=== PATIENT | female | born 1940 | race Caucasian/White ===

== ENCOUNTER 2024-08-28 10:37 | Emergency (ER) | payer OTHER ==
[~2024-08-28] VITALS: Ht 170.2 cm; Wt 150.0 kg
[~2024-08-28 10:37] MED LIST: GABA-1250; HYDR2INJ9; LORA-655; MECL100C; NOR10T; ONDA-144; PAROXETINE 20 MG; PREG100C; TRAZ-227; [UNRECOGNIZED DRUG - CODE]
[2024-08-28 11:42] VITALS: PULSE 85; RESP 20; O2SAT 95
--- NOTE | 2024-08-28 11:48 | ED.PDOC ---
Robet. trauma (HPI) HPI Comments 84 y/o F, TWIN presents to the ED for CC of hip pain. Per EMS, patient is s/p ground level fall x1day ago. Patient complains of current left hip pain. Patient denies LOC, head injury, open wounds, lacerations, or abrasions. Patient denies social history. No other associated symptoms, modifiers, or sick contacts at t his time. Chief Complaint: Fall Injury Time Seen by MD: 11:20 Primary Care Provider: UNKNOWN Reviewed notes: Nurses Notes, Desktop Support Associate Notes, Medications, Allergies Allergies: Coded Allergies: NO KNOWN ALLERGIES (Unverified , 05/25/11) Home Meds Reported Medications Gabapentin (Gabapentin) 300 Mg Cap, #300 05/02/16 Ondansetron (Zofran) 4 Mg Tab, #30 05/02/16 Meclofenamate Sodium (Meclofenamate Sodium) 100 Mg Cap, #100 05/02/16 Trazodone Hcl (Trazodone Hcl) 50 Mg Tab 05/25/11 [Paroxetine 20 Mg] No Conflict Check 05/25/11 Hydrocodone-Acetaminophen ([place] 10/325MG) 1 Tab Tb 05/25/11 Pregabalin (Lyrica) 100 Mg Cap 05/25/11 Hydromorphone Hcl (Dilaudid) 2 Mg/Ml Inj 05/25/11 Sulindac (Clinoril) 200 Mg Tab 05/25/11 Lorazepam (Ativan) 0.5 Mg Tab 05/25/11 Information Source: Patient, Emergency Med Personnel Mode of Arrival: EMS Severity: Moderate Timing: Days Duration: Since onset Prehospital treatment: None Location: (L) Hip Location of laceration: None Mechanism: Fall Associated signs and symtoms: None Past Medical History PAST MEDICAL HISTORY: Denies Surgical History: Denies all surgeries WEDGER MACHINE History: No Pertinent WEDGER MACHINE History Family History Family History: Unobtainable Social History Smoker: Non-Smoker Alcohol: Denies ETOH Use Drugs: Denies Drug Use Lives In: Home Constitutional: denies: chills, diaphoresis, fatigue, fever, malaise, sweats, weakness, others EENTM: denies: blurred vision, double vision, ear bleeding, ear discharge, ear drainage, ear pain, ear ringing, eye pain, eye redness, hearing loss, mouth pain, mouth swelling, nasal discharge, nose bleeding, nose congestion, nose pain, photophobia, tearing, throat pain, throat swelling, voice changes, others Respiratory: denies: cough, hemoptysis, orthopnea, SOB at rest, shortness of breath, SOB with excertion, stridor, wheezing, others Cardiovascular: denies: chest pain, dizzy spells, diaphoresis, Dyspnea on exertion, edema, irregular heart beat, left arm pain, lightheadedness, palpi tations, PND, syncope, others Gastrointestinal: denies: abdomen distended, abdominal pain, blood streaked bowels, constipated, diarrhea, dysphagia, difficulty swallowing, hematemesis, melena, nausea, poor appetite, poor fluid intake, rectal bleeding, rectal pain, vomiting, others Genitourinary: denies: abnormal vagina bleeding, burning, dyspareunia, dysuria, flank pain, frequency, hematuria, incontinence, pain, , vagina discharge, urgency, others Neurological: denies: dizziness, fainting, headache, left sided numbness, left sided weakness, numbness, paresthesia, pre-existing deficit, right sided numbness, right sided weakness, seizure, speech problems, tingling, tremors, weakness, others Musculoskeletal: reports: others (left hip ); denies: back pain, gout, joint pain, joint swelling, muscle pain, muscle stiffness, neck pain Integumetry: denies: bruises, change in color, change in hair/nails, dryness, laceration, lesions, lumps, rash, wounds, others Allergic/Immunocompromised: denies: Difficulty Healing, Frequent Infections, Hives, Itching, others Hematologic/Lymphatic: denies: anemia, blood clots, easy bleeding, easy bruising, swollen glands, others Endocrine: denies: excessive hunger, excessive sweating, excessive thirst, excessive urination, flushing, intolerance to cold, intolerance to heat, unexplained weight gain, unexplained weight loss, others Psychiatric: denies: anxiety, bipolar disorder, depression, hopeless, panic disorder, schizophrenia, sleepless, suicidal, others All Other Systems: Reviewed and Negative Physical Exam General Appearance: No Apparent Distress, Normal HEENT: Normal ENT Inspection, Pharynx Normal, TMs Normal Neck: Full Range of Motion, Non-Tender, Normal, Normal Inspection Respiratory: Chest Non-Tender, Lungs Clear, No Accessory Muscle Use, No Respiratory Distress, Normal Breath Sounds Cardiovascular: No Edema, No JVD, No Murmur, No Gallop, Normal Peripheral Pulses, Regular Rate/Rhythm Breast Exam: Deferred Gastrointestinal: No Organomegaly, Non Tender, No Pulsatile Mass, Normal Bowel Sounds, Soft Genitalia: Deferred Pelvic: Other (No pain with axial loading of the pelvis) Rectal: Deferred Extremities: No calf tenderness, Normal capillary refill, Normal inspection, Normal range of motion, Non-tender (Tender over the entirety of bilateral lower extremities), No pedal edema Musculoskeletal : Location: Left Extremity Location: Hip (unable to lift extremity against gravity ) Apperance: Normal Neurologic: Alert, No Motor Deficits, Normal Affect, Normal Mood, No Sensory Deficits Cerebellar Function: Normal Reflexes: Normal Skin: Dry, Normal Color, Warm Lymphatic: No Adenopathy Was a procedure done? Was a procedure done?: No Differential Diagnosis Multiple Trauma: Fractures, Abrasions, Contusion X-Ray, Labs, Meds, VS Vital Signs Date Time Temp Pulse Resp B/P (MAP) Pulse Ox O2 Delivery O2 Flow Rate FiO2 08/28/24 16:19 97.8 63 16 7/76 (53) 98 97.8 08/28/24 14:03 97.8 56 16 168/76 (106) 98 97.8 08/28/24 12:50 61 18 166/77 08/28/24 11:56 57 16 164/96 08/28/24 11:46 97.8 57 16 164/96 (118) 94 97.8 08/28/24 11:46 57 16 94 Room Air 08/28/24 11:42 85 20 95 Room Air* 0 21 08/28/24 11:38 98.1 76 16 157/73 (101) 94 Lab Test 08/28/24 12:51 08/28/24 11:34 08/28/24 11:30 Range/Units Urine Color Yellow Yellow Urine Clarity Clear Clear Urine pH 6.0 5.0-9.0 Urine Specific [place] 1.024 1.001-1.035 Urine Protein Negative Negative Urine Ketones Negative Negative Urine Blood 1+ H Negative /uL Urine Nitrite Negative Negative Urine Bilirubin Negative Negative Urine Urobilinogen 2 H Negative mg/dL Urine Leukocyte Esterase 2+ Negative /uL Urine RBC 67 0 - 4 /hpf Urine Microscopic WBC 40 H 0-5 /HPF Urine Squamous Epithelial Cells Few <5 /hpf Urine Bacteria None seen None Seen /hpf Urine Mucus Few None Seen Urine Glucose Normal Normal mg/dL White Blood Count 7.8 4.4-10.8 10^3/uL Red Blood Count 4.62 4.0-5.20 10^6/uL Hemoglobin 15.1 12.2-16.2 g/dL Hematocrit 46.9 H 36.0-46.0 % Mean Corpuscular Volume 101.5 H 80.0-100.0 fL Mean Corpuscular Hemoglobin 32.7 H 28.0-32.0 pg Mean Corpuscular Hemoglobin Concent 32.2 32.0-36.0 g/dL Red Cell Distribution Width 14.1 11.8-14.3 % Platelet Count 199 140-450 10^3/uL Mean Platelet Volume 8.9 6.9-10.8 fL Neutrophils (%) (Auto) 72.4 37.0-80.0 % Lymphocytes (%) (Auto) 16.8 10.0-50.0 % Monocytes (%) (Auto) 8.9 0.0-12.0 % Eosinophils (%) (Auto) 1.2 0.0-7.0 % Basophils (%) (Auto) 0.7 0.0-2.0 % Neutrophils # (Auto) 5.7 1.6-8.6 10 ^3/uL Lymphocytes # (Auto) 1.3 0.4-5.4 10 ^3/uL Monocytes # (Auto) 0.7 0-1.3 10 ^3/uL Eosinophils # (Auto) 0.1 0-0.8 10 ^3/uL Basophils # (Auto) 0.1 0-0.2 10 ^3/uL Nucleated Red Blood Cells 0.1 % Sodium Level 139 136-145 mmol/L Potassium Level 4.3 3.5-5.1 mmol/L Chloride Level 104 98-107 mmol/L Carbon Dioxide Level 27 20-31 mmol/L Anion Gap 8 5-15 Blood Urea Nitrogen 14 9-23 mg/dL Creatinine 1.04 H 0.550-1.02 mg/dL Glomerular Filtration Rate Calc 54 >90 mL/min BUN/Creatinine Ratio 13.5 10.0-20.0 Serum Glucose 106 74-106 mg/dL Calcium Level 10.1 8.7-10.4 mg/dL Total Bilirubin 0.8 0.2-1.0 mg/dL Aspartate Amino Transferase (AST) 38 13-40 U/L Alanine Aminotransferase (ALT) 15 7-40 U/L Alkaline Phosphatase 145 H 46-116 U/L Total Protein 7.9 5.7-8.2 g/dL Albumin 4.3 3.2-4.8 g/dL Current Medications Medications (Trade) Dose Ordered Sig/Vilma Route Start Time Stop Time Status Last Admin Ondansetron HCl (Zofran) 4 mg ONCE ONCE IV 08/28/24 12:00 08/28/24 12:01 DC 08/28/24 11:56 Morphine Sulfate 4 mg ONCE ONCE IV 08/28/24 12:00 08/28/24 12:01 DC 08/28/24 11:56 X-Ray, Labs, Meds, VS Comment This 84-year-old female presents secondary to left hip pain. Physical exam was benign she had no tender to palpation over the entirety of the extremity or with axial loading. X-ray showed arthritic changes. A CT was ordered to rule out occult fracture. No fracture was noted. Upon reassessment, the patient was not complaining of pain to the hip. As such, discharge the patient home. Patient was asked to follow up with her PCP in next 1 2 days return to the ER for new/worse/worsening symptoms. Time of 1ST Reevaluation: 11:50 Reevaluation 1ST: Unchanged Patient Education/Counseling: Diagnosis, Treatment Family Education/Counseling: No Family Present Departure 1 Departure Time of Disposition: 16:26 Impression: Primary Impression: Left hip pain Additional Impressions: Arthritis of left hip Obesity Disposition: HOME / SELF CARE / HOMELESS Condition: Good Discharged With: Self Critical Care Note Critical Care Time?: No Stability Stability form required: No Heart Score Heart Score: Heart Score Response (Comments) Value History N/A 0 EKG N/A 0 Age N/A 0 Risk Factors N/A 0 Troponin N/A 0 Total 0 I personally scribed for CONSTANCE SMITH MD ([email or web address]) on 08/28/24 at 11:48. Electronically submitted by Erica Marinelli ([email or web address]). I personally scribed for CONSTANCE SMITH MD ([email or web address]) on 08/28/24 at 12:01. Electronically submitted by Erica Marinelli ([email or web address]). CONSTANCE SMITH MD Aug 28, 2024 11:48
[2024-08-28 11:51] LABS: Basophils # (auto) 0.1 10 ^3/uL (0-0.2); Eosinophils # (auto) 0.1 10 ^3/uL (0-0.8); Hemoglobin 15.1 g/dL (12.2-16.2); Mean Corpuscular Hgb Conc. 32.2 g/dL (32.0-36.0); Monocytes # (auto) 0.7 10 ^3/uL (0-1.3); Neutrophils # (auto) 5.7 10 ^3/uL (1.6-8.6); Nucleated Red Blood Cells % 0.1 %; Red Blood Cells 4.62 10^6/uL (4.0-5.20)
[2024-08-28 11:54] LABS: Basophils % (auto) 0.7 % (0.0-2.0); Eosinophils % (auto) 1.2 % (0.0-7.0); Hematocrit 46.9 % (36.0-46.0); Lymphocytes # (auto) 1.3 10 ^3/uL (0.4-5.4); Lymphocytes % (auto) 16.8 % (10.0-50.0); Mean Corpuscular Hemoglobin 32.7 pg (28.0-32.0); Mean Corpuscular Volume 101.5 fL (80.0-100.0); Monocytes % (auto) 8.9 % (0.0-12.0); Neutrophils % (auto) 72.4 % (37.0-80.0); Platelet Count (auto) 199 10^3/uL (140-450); Red Cell Distribution Width 14.1 % (11.8-14.3); White Blood Cell 7.8 10^3/uL (4.4-10.8)
[2024-08-28] MEDS: MORPHINE SULFATE 4 MG/ML SYR/VIAL IV ONE (11:56)
[2024-08-28] MEDS: ONDANSETRON HCL 4 MG/2 ML VIAL IV ONE (11:56)
[2024-08-28 12:04] LABS: Alanine Aminotransferase 15 U/L (7-40); Albumin 4.3 g/dL (3.2-4.8); Anion Gap 8 (5-15); Aspartate Aminotransferase 38 U/L (13-40); BUN/Creatinine Ratio 13.5 (10.0-20.0); Bilirubin, Total 0.8 mg/dL (0.2-1.0); Blood Urea Nitrogen 14 mg/dL (9-23); Calcium 10.1 mg/dL (8.7-10.4); Carbon Dioxide 27 mmol/L (20-31); Chloride 104 mmol/L (98-107); Glucose 106 mg/dL (74-106); Potassium 4.3 mmol/L (3.5-5.1); Sodium 139 mmol/L (136-145); Total Protein 7.9 g/dL (5.7-8.2)
[2024-08-28 12:14] LABS: Alkaline Phosphatase 145 U/L (46-116)
[2024-08-28 12:56] LABS: Urine Bacteria None Seen /hpf (None Seen)
[2024-08-28 13:12] LABS: Urine Blood 1+ /uL (Negative); Urine Clarity Clear (Clear); Urine Color Yellow (Yellow); Urine Mucus FEW (None Seen); Urine Protein, UAD Negative (Negative); Urine Specific Gravity 1.024 (1.001-1.035); Urine Squamous Epithelial Cell FEW /hpf (<5); Urine Urobilinogen 2 mg/dL (Negative); Urine WBC 40 /HPF (0-5)
--- NOTE | 2024-08-28 13:54 | DVH ---
EXAM: XY CHEST XRAY 1 VIEW Indication: cough Technique: Single frontal view of the chest was obtained Comparison: None FINDINGS: Lines and Tubes: None Lungs: No focal consolidation. Pleura: No effusion. No pneumothorax. Cardiomediastinal contours: Unremarkable Bones: No acute osseous abnormality. IMPRESSION: No acute cardiopulmonary disease.
--- NOTE | 2024-08-28 13:58 | DVH ---
CLINICAL INDICATION: hip pain status post trauma TECHNIQUE: 1 radiographic views of the pelvis and were obtained. Comparison: None FINDINGS/IMPRESSION: Evaluation is limited due to technique of exam. 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
[2024-08-28 14:30] VITALS: PULSE 63; RESP 16; O2SAT 95
--- NOTE | 2024-08-28 15:44 | DVH ---
EXAM: CT CT L HIP WITH OUT CONTRAST INDICATION: hip pain, r/o fx EXAM DATE: 08/28/2024 02:42 PM COMPARISON: None TECHNIQUE: Multiple axial CT images of the left hip were obtained using bone algorithm. Axial and cor onal reformatting was done. Bone and soft tissue windows were reviewed. Radiation Dose Information: CT Dose: CTDI volume is 80.12 mGy. Dose-length product is 2628.18 mGy*cm Findings/Impression: There is no evidence of an acute fracture, dislocation, blastic, or lytic lesions. Marked degenerative changes left hip. The urinary bladder is decompressed via Vera catheter. No joint effusion or superficial soft tissue abnormalities.
[2024-08-28] MEDS: cefTRIAXone 1GM/50ML D5W 50 ML IV ONE (16:47)
[2024-08-28 19:45] VITALS: BP 153/65; PULSE 63; RESP 16; TEMP 98.7; O2SAT 93
== END 2024-08-28 20:54 | disposition home or self-care (01) ==
LOC: ER 10:37 → EDBD 10:37 → ER 20:54
DX: M16.12 Unilateral primary osteoarthritis, left hip (principal); E66.9 Obesity, unspecified; W18.39XA Other fall on same level, initial encounter; Y93.89 Activity, other specified; Y92.89 Other specified places as the place of occurrence of the external cause; Y99.8 Other external cause status
CPT/HCPCS: 36415; 71045; 73502; 73700; 80053; 81001; 85025; 96365; 96375; 99285; J0696; J2270; J2405; 96372

== ENCOUNTER 2024-08-30 09:02 | Emergency (ER) | payer OTHER ==
[~2024-08-30] VITALS: Ht 170.2 cm; Wt 150.0 kg
[2024-08-30 09:30] VITALS: PULSE 60; RESP 15; O2SAT 96
--- NOTE | 2024-08-30 10:16 | ED.PDOC ---
General HPI Comments HPI: Poor Historian. HPI: 84 year old female TWIN presents to the ED with chief complaint of urinary retention. Patient reports that she has been unable to urinate for the past 2 days, with her calling 911 due to being concerned. Patient relays that she was seen in the ED 2 days ago for left hip pain s/p fall and had a Vera catheter placed at that time, however, she was discharged and the Vera catheter was removed. Patient states she is on Morphine for chronic generalized body pain daily. Patient notes that her last bowel movement was 2 days ago, however, constipation is normal for her as she will have a bowel movement every few days. Patient denies any abdominal pain, N/V/D, fever, chills, dysuria, or hematuria. Vitals: Temp: 98.6F BP: 133/75 HR: 71 RR: 16 spO2: 96% on RA Past Medical History: HTN, Hernias, chronic generalized body pain, abdominal hernia Past Surgical History: Denies Social History: Denies cigarette, ETOH, or drug use. Allergies: NKDA REVIEW OF SYSTEMS: CONSTITUTIONAL: Denies acute: fever, diaphoresis, chills, generalized weakness. HEAD: Denies acute: headache, photophobia Eyes: Denies acute: Double vision, vision loss, eye pain, eye discharge. EARS: Denies acute: tinnitus, hearing loss, ear discharge, ear pain, THROAT: Denies acute: sore throat, swelling, difficulty swallowing , pain with swallowing, change in voice. NECK: Denies acute: neck pain, neck swelling, stiff neck. HEART: Denies acute : chest pain, palpitations, LUNGS: Denies acute: SOB, wheezing, cough, hemoptysis ABDOMEN: Denies acute: abdominal pain, Nausea, Vomiting, diarrhea, melena , hematemesis, hematochezia SKIN: Denies acute: rash, redness, lesions, itchiness. EXTREMITIES: Denies acute: calf pain, numbness, tingling, weakness, denies pain in extremity. Denies acute: Low back pain. Neuro: Denies acute: focal neurological deficit, motor or sensory focal neurological deficit, tremors, seizure like activity, confusion, dizziness, change in mental status, loss of bowel or bladder function, cauda equina like symptoms. : Denies acute: dysuria, hematuria, flank pain, increase in urinary frequency. PSYCH: Denies acute: hallucination, suicidal ideation, homicidal ideation. FEMALE: Denies acute: abnormal vaginal bleeding, foul odor, unusual discharge. PHYSICAL EXAM: General: no acute distress, awake and alert. Head: normocephalic, atraumatic. Neck: supple, trachea is midline, no swelling. Throat: Normal phonation. Eyes:, no erythema, no purulent discharge, no proptosis, no icterus. Heart: regular rate, regular rhythm, no significant murmur appreciated. Lungs: no apparent respiratory distress, Able to speak in full sentences. No wheezing, no rhonchi, no crackles. No stridors Clear to auscultation bilaterally. Abdomen: non tender to palpation, non distended, soft, no guarding, no rebound, + bowel sounds. Morbidly obese Neuro: Awake, Alert, oriented to name, self, situation, follows commands GCS=15. Speech is normal. Skin: no petechia, no purpura, no cyanosis, non-pale, not jaundice. Lower extremities: --no - Pitting edema no deformity, no focal swelling, no calf TTP. Makes eye contact. moves all four extremities. Face: no apparent facial droop. ED COURSE: Chief Complaint: Urinary Time Seen by MD: 10:10 Primary Care Provider: UNKNOWN Reviewed notes: Nurses Notes, Medications, Allergies Allergies: Coded Allergies: NO KNOWN ALLERGIES (Unverified , 05/25/11) Home Meds Reported Medications Gabapentin (Gabapentin) 300 Mg Cap, #300 05/02/16 Ondansetron (Zofran) 4 Mg Tab, #30 05/02/16 Meclofenamate Sodium (Meclofenamate Sodium) 100 Mg Cap, #100 05/02/16 Trazodone Hcl (Trazodone Hcl) 50 Mg Tab 05/25/11 [Paroxetine 20 Mg] No Conflict Check 05/25/11 Hydrocodone-Acetaminophen ([place] 10/325MG) 1 Tab Tb 05/25/11 Pregabalin (Lyrica) 100 Mg Cap 05/25/11 Hydromorphone Hcl (Dilaudid) 2 Mg/Ml Inj 05/25/11 Sulindac (Clinoril) 200 Mg Tab 05/25/11 Lorazepam (Ativan) 0.5 Mg Tab 05/25/11 Information Source: Patient Mode of Arrival: EMS Was a procedure done? Was a procedure done?: No Differential Diagnosis Kidney stone (Female): N/A Urinary Problem (Female): Impaction, Pyelonephritis, Urinary retention, UTI X-Ray, Labs, Meds, VS Vital Signs Date Time Temp Pulse Resp B/P (MAP) Pulse Ox O2 Delivery O2 Flow Rate FiO2 08/30/24 14:00 97.8 69 14 156/79 (104) 87 97.8 08/30/24 12:00 97.3 59 17 147/61 (89) 98 97.3 08/30/24 12:00 61 08/30/24 11:00 97.9 59 12 140/66 (90) 96 97.9 08/30/24 09:30 60 15 96 Nasal Cannula* 2 28 08/30/24 09:30 97.5 60 15 128/66 (86) 85 97.5 08/30/24 09:15 98.6 71 16 133/75 (94) 96 98.6 Lab Test 08/30/24 12:45 08/30/24 11:51 Range/Units Urine Color Yellow Yellow Urine Clarity Turbid H Clear Urine pH 5.5 5.0-9.0 Urine Specific [place] 1.027 1.001-1.035 Urine Protein 1+ H Negative Urine Ketones Negative Negative Urine Blood 1+ H Negative /uL Urine Nitrite Negative Negative Urine Bilirubin Negative Negative Urine Urobilinogen 2 H Negative mg/dL Urine Leukocyte Esterase 1+ Negative /uL Urine RBC 25 0 - 4 /hpf Urine Microscopic WBC 36 H 0-5 /HPF Urine Squamous Epithelial Cells Few <5 /hpf Urine Bacteria None seen None Seen /hpf Urine Hyaline Casts Many 0 - 2 /lpf Urine Mucus Few None Seen Urine Glucose Normal Normal mg/dL White Blood Count 10.4 # 4.4-10.8 10^3/uL Red Blood Count 4.37 4.0-5.20 10^6/uL Hemoglobin 14.4 12.2-16.2 g/dL Hematocrit 44.5 36.0-46.0 % Mean Corpuscular Volume 101.8 H 80.0-100.0 fL Mean Corpuscular Hemoglobin 33.0 H 28.0-32.0 pg Mean Corpuscular Hemoglobin Concent 32.4 32.0-36.0 g/dL Red Cell Distribution Width 14.1 11.8-14.3 % Platelet Count 233 140-450 10^3/uL Mean Platelet Volume 9.4 6.9-10.8 fL Neutrophils (%) (Auto) 68.1 37.0-80.0 % Lymphocytes (%) (Auto) 19.8 10.0-50.0 % Monocytes (%) (Auto) 10.0 0.0-12.0 % Eosinophils (%) (Auto) 1.2 0.0-7.0 % Basophils (%) (Auto) 0.9 0.0-2.0 % Neutrophils # (Auto) 7.1 1.6-8.6 10 ^3/uL Lymphocytes # (Auto) 2.1 0.4-5.4 10 ^3/uL Monocytes # (Auto) 1.0 0-1.3 10 ^3/uL Eosinophils # (Auto) 0.1 0-0.8 10 ^3/uL Basophils # (Auto) 0.1 0-0.2 10 ^3/uL Nucleated Red Blood Cells 0.0 % Sodium Level 140 136-145 mmol/L Potassium Level 4.2 3.5-5.1 mmol/L Chloride Level 101 98-107 mmol/L Carbon Dioxide Level 28 20-31 mmol/L Anion Gap 11 5-15 Blood Urea Nitrogen 34 H 9-23 mg/dL Creatinine 2.41 #H 0.550-1.02 mg/dL Glomerular Filtration Rate Calc 20 >90 mL/min BUN/Creatinine Ratio 14.1 10.0-20.0 Serum Glucose 113 H 74-106 mg/dL Calcium Level 9.6 8.7-10.4 mg/dL Total Bilirubin 0.5 0.2-1.0 mg/dL Aspartate Amino Transferase (AST) 37 13-40 U/L Alanine Aminotransferase (ALT) 17 7-40 U/L Alkaline Phosphatase 132 H 46-116 U/L Total Protein 7.7 5.7-8.2 g/dL Albumin 4.2 3.2-4.8 g/dL Current Medications Medications (Trade) Dose Ordered Sig/Vilma Route Start Time Stop Time Status Last Admin Sodium Chloride 1,000 ml @ 1,000 mls/hr Q1H ONCE IV 08/30/24 13:30 08/30/24 14:29 DC 08/30/24 13:36 Ceftriaxone Sodium 50 ml @ 100 mls/hr ONCE ONCE IV 08/30/24 14:00 08/30/24 14:29 DC 08/30/24 14:21 Time of 1ST Reevaluation: 11:10 Reevaluation 1ST: Unchanged Time of 2ND Reevaluation: 14:00 (The case was discussed with the [place] admitting team (HPI, physical exam, labs and diagnostic tests that were available at the time of disposition, ED course, treatment plan) on the phone. They transfer the patient to their service by [facility] for further evaluation and treatment. Authorization number is--[id number]) Patient Education/Counseling: Diagnosis, Treatment Family Education/Counseling: No Family Present Comments Patient presented with the above HPI.---urinary symptoms---workup was initiated. patient was found with the above mentioned diagnosis. the following medications were ordered: please refer to order lists of meds and tests obtained by myself Dr. Mcnair. Patient ED course and VS have been stabilized. Patient has been reassessed in the ED and remained in a stable condition. Pertinent incidental findings were discussed with the patient and/or family. Patient/family voices understanding and is agreeable with plan. Patient has been observed in the ED adequate length of time to insure improvement/stability. Escalation of care considered: Consideration of escalation to observation or admission Patient was transferred to [place] per insure requirement to the medicine team for further evaluation and treatment of their presentation. Vera catheter was placed. 250 cc of urine was obtained. All the reports of any imaging studies that were ordered by myself were reviewed by myself. Departure 1 Departure Time of Disposition: 13:22 Impression: Primary Impression: Acute renal failure Additional Impressions: Decreased urine output UTI (urinary tract infection) Disposition: 02 SHORT TERM HOSPITAL Admit to: [facility] Condition: Guarded Discharged With: Self Critical Care Note Critical Care Time?: No Heart Score Heart Score: Heart Score Response (Comments) Value History N/A 0 EKG N/A 0 Age N/A 0 Risk Factors N/A 0 Troponin N/A 0 Total 0 I personally scribed for ESTHER MCNAIR DO ([email or web address]) on 3/15/25 at 10:16. Electronically submitted by Trav Armando ([email or web address]). ESTHER MCNAIR DO Aug 30, 2024 10:16
[2024-08-30 12:13] LABS: Basophils # (auto) 0.1 10 ^3/uL (0-0.2); Eosinophils # (auto) 0.1 10 ^3/uL (0-0.8); Hemoglobin 14.4 g/dL (12.2-16.2); Red Cell Distribution Width 14.1 % (11.8-14.3); White Blood Cell 10.4 10^3/uL (4.4-10.8)
[2024-08-30 12:15] LABS: Basophils % (auto) 0.9 % (0.0-2.0); Eosinophils % (auto) 1.2 % (0.0-7.0); Hematocrit 44.5 % (36.0-46.0); Lymphocytes # (auto) 2.1 10 ^3/uL (0.4-5.4); Lymphocytes % (auto) 19.8 % (10.0-50.0); Mean Corpuscular Hgb Conc. 32.4 g/dL (32.0-36.0); Mean Corpuscular Volume 101.8 fL (80.0-100.0); Neutrophils # (auto) 7.1 10 ^3/uL (1.6-8.6); Neutrophils % (auto) 68.1 % (37.0-80.0); Platelet Count (auto) 233 10^3/uL (140-450); Red Blood Cells 4.37 10^6/uL (4.0-5.20)
[2024-08-30 12:32] LABS: Alanine Aminotransferase 17 U/L (7-40); Albumin 4.2 g/dL (3.2-4.8); Anion Gap 11 (5-15); Aspartate Aminotransferase 37 U/L (13-40); BUN/Creatinine Ratio 14.1 (10.0-20.0); Bilirubin, Total 0.5 mg/dL (0.2-1.0); Calcium 9.6 mg/dL (8.7-10.4); Carbon Dioxide 28 mmol/L (20-31); Chloride 101 mmol/L (98-107); Potassium 4.2 mmol/L (3.5-5.1); Sodium 140 mmol/L (136-145); Total Protein 7.7 g/dL (5.7-8.2)
[2024-08-30 12:37] LABS: Alkaline Phosphatase 132 U/L (46-116); Blood Urea Nitrogen 34 mg/dL (9-23); Glucose 113 mg/dL (74-106)
[2024-08-30 13:02] LABS: Urine Bacteria None Seen /hpf (None Seen)
[2024-08-30] MEDS: SODIUM CHLORIDE 0.9% 1,000 ML IV ONE (13:36)
[2024-08-30 13:43] LABS: Urine Blood 1+ /uL (Negative); Urine Clarity Turbid (Clear); Urine Color Yellow (Yellow); Urine Hyaline Cast MANY /lpf (0 - 2); Urine Mucus FEW (None Seen); Urine Protein, UAD 1+ (Negative); Urine Specific Gravity 1.027 (1.001-1.035); Urine Squamous Epithelial Cell FEW /hpf (<5); Urine Urobilinogen 2 mg/dL (Negative); Urine WBC 36 /HPF (0-5); Urine pH 5.5 (5.0-9.0)
[2024-08-30] MEDS: cefTRIAXone 1GM/50ML D5W 50 ML IV ONE (14:21)
[2024-08-30] MEDS: SUCCINYLCHOLINE CHLORIDE 20 MG/ML 10ML VIAL IV ONE (17:51)
[2024-08-30] MEDS: ETOMIDATE (2MG/ML) 20ML VIAL IV ONE (17:51)
[2024-08-30] MEDS: HYDROcodone-ACET 5/325MG TAB PO ONE (18:21)
[2024-08-30 18:53] VITALS: BP 155/68; PULSE 67; RESP 18; TEMP 97.8; O2SAT 94
== END 2024-08-30 14:52 | disposition short-term general hospital (02) ==
LOC: EDBD 09:02 → ER 09:02
DX: I12.9 Hypertensive chronic kidney disease with stage 1 through stage 4 chronic kidney disease, or unspecified chronic kidney disease (principal); N17.9 Acute kidney failure, unspecified; N39.0 Urinary tract infection, site not specified; R34 Anuria and oliguria
CPT/HCPCS: 36415; 51702; 80053; 81001; 96361; 96365; 99285; J0696; J7030; J0330